=== PATIENT | female | born 1940 | race Caucasian/White ===

== ENCOUNTER 2021-08-05 13:36 | Inpatient (IN) ==
[2021-08-05] MEDS ORDERED: SODIUM CHLORIDE 0.9% 1,000 ML IV STA (14:39)
[2021-08-05 14:51] LABS: Basophils % 0.2 % (0.0-0.8); Hematocrit 42.4 VOL% (35.7-47.0); Immature Granulocytes % 0.7 %; Lymphocytes % 7.2 % (21.3-54.2); Mean Corpuscular Volume 97.2 FL (87-102); Mean Platelet Volume 9.8 FL (9.6-12.0); Monocytes # 0.4 10*3/uL (0.11-0.8); Monocytes % 2.9 % (1.7-12.7); Platelet Count 233 T/CUMM (130-400); Red Blood Count 4.36 MC/CUMM (3.8-5.5); Red Cell Distribution Width 13.8 % (9.3-17.3); White Blood Count 14.5 T/CUMM (4-12)
[2021-08-05 15:13] LABS: Albumin 4.1 G/DL (3.4-5.0); Bilirubin,Total 0.4 MG/DL (0.20-1.00); Calcium 10.5 MG/DL (8.5-10.1); Osmolality,Calculated 272.2 MOS/KG (273-304); Potassium 4.6 MMOL/L (3.5-5.1); Total Protein 8.6 G/DL (6.4-8.2)
[2021-08-05] MEDS ORDERED: ONDANSETRON 4 MG/2 ML VIAL IV PRN (15:28)
[2021-08-05] MEDS ORDERED: MORPHINE 2 MG/1 ML SYRINGE IV PRN ×2 (15:49)
[2021-08-05] MEDS ORDERED: ALBUTEROL/IPRATROPIUM 3 ML NEB RESP TX PRN (15:49)
[2021-08-05] MEDS ORDERED: ACETAMINOPHEN 325 MG TABLET PO PRN (15:49)
[2021-08-05] MEDS ORDERED: KETOROLAC 30 MG/1 ML VIAL IV PRN (15:49)
[2021-08-05] MEDS ORDERED: GLUCAGON 1 MG VIAL IM PRN (15:53)
[2021-08-05] MEDS ORDERED: hydrALAZINE 20 MG/1 ML VIAL IV PRN (15:53)
[2021-08-05] MEDS ORDERED: HYDROmorphone 1 MG/1 ML SYRINGE ONE (15:55)
[2021-08-05] MEDS ORDERED: DEXTROSE 10% 250 ML BAG IV PRN (15:56)
[2021-08-05] MEDS ORDERED: HYDROmorphone 1 MG/1 ML SYRINGE IV STA (16:00)
[2021-08-05] MEDS ORDERED: ONDANSETRON 4 MG/2 ML VIAL IV STA (16:00)
[2021-08-05] MEDS: LACTATED RINGERS 1,000 ML IV SCH (17:30)
[2021-08-05] MEDS: PANTOPRAZOLE 40 MG VIAL IV SCH (17:30)
[2021-08-05] MEDS: INSULIN LISPRO 100 UNIT/ML SUBCUT SCH ×2 (17:35→21:24)
[2021-08-05 19:02] LABS: Bilirubin,Urine Negative (Negative); Blood, Urine Negative (Negative); Glucose,Urine (UA) Negative (Negative); Hyaline Casts,Urine 3 /LPF (0-3); Ketones,Urine Negative (Negative); Mucus,Urine Occasional /LPF (Occasional); Nitrite,Urine Negative (Negative); Protein,Urine 30 mg/dL (Negative); RBC,Urine <1 /HPF (0-4); Squamous Epithelial Cell,Urine Occasional /HPF (0-10); Urine Appearance Clear (Clear); Urine Color Yellow (Yellow); Urine Specific Gravity 1.025 (1.001-1.035); Urine Urobilinogen 0.2 eU/dL (<2.0)
[2021-08-05] MEDS: ONDANSETRON 4 MG/2 ML VIAL IV PRN ×2 (20:55→23:04)
[2021-08-05] MEDS ORDERED: DILTIAZEM 90 MG TABLET PO SCH (21:00)
[2021-08-05] MEDS: BUDESONIDE/FORMOTEROL 160-4.5 INHALER 6 GM INH SCH (23:03)
[2021-08-05] MEDS: DILTIAZEM 30 MG TABLET PO SCH (23:03)
[2021-08-06] MEDS: LACTATED RINGERS 1,000 ML IV SCH ×3 (02:15→16:57)
[2021-08-06] MEDS: ONDANSETRON 4 MG/2 ML VIAL IV PRN (02:55)
[2021-08-06 05:23] LABS: Basophils % 0.2 % (0.0-0.8); Eosinophils % 0.1 % (0.00-10.9); Hematocrit 40.4 VOL% (35.7-47.0); Hemoglobin 13.2 GM/DL (12.0-16.0); Immature Granulocytes % 0.5 %; Immature Granulocytes Absolute 0.09 #; Lymphocytes # 1.2 10*3/uL (1.4-4.0); Lymphocytes % 6.5 % (21.3-54.2); Mean Corpuscular HGB Conc 32.7 GM/DL (32-36); Mean Corpuscular Volume 97.3 FL (87-102); Mean Platelet Volume 10.2 FL (9.6-12.0); Monocytes # 1.2 10*3/uL (0.11-0.8); Monocytes % 6.4 % (1.7-12.7); Neutrophils % 86.3 % (38.7-73.9); Platelet Count 218 T/CUMM (130-400); Red Blood Count 4.15 MC/CUMM (3.8-5.5); Red Cell Distribution Width 13.8 % (9.3-17.3); White Blood Count 17.8 T/CUMM (4-12)
[2021-08-06 05:36] LABS: Calcium 9.6 MG/DL (8.5-10.1); Osmolality,Calculated 276.8 MOS/KG (273-304)
[2021-08-06] MEDS: INSULIN LISPRO 100 UNIT/ML SUBCUT SCH ×4 (09:46→22:02)
[2021-08-06] MEDS: BUDESONIDE/FORMOTEROL 160-4.5 INHALER 6 GM INH SCH ×2 (09:53→22:02)
[2021-08-06] MEDS: TRIAMTERENE/HCTZ 37.5-25 MG TABLET PO SCH (09:54)
[2021-08-06] MEDS: DILTIAZEM 30 MG TABLET PO SCH ×2 (09:54→22:01)
[2021-08-06] MEDS: PANTOPRAZOLE 40 MG VIAL IV SCH (09:56)
[2021-08-06] MEDS ORDERED: PHENOL 1.4% THROAT SPRAY 177 ML BOTTLE PO PRN (11:03)
[2021-08-06] MEDS: ENOXAPARIN 40 MG/0.4 ML SYRINGE SUBCUT SCH (12:25)
[2021-08-07] MEDS: LACTATED RINGERS 1,000 ML IV SCH ×3 (00:43→18:22)
[2021-08-07] MEDS: INSULIN LISPRO 100 UNIT/ML SUBCUT SCH ×4 (08:16→20:46)
[2021-08-07] MEDS: TRIAMTERENE/HCTZ 37.5-25 MG TABLET PO SCH (08:51)
[2021-08-07] MEDS: DILTIAZEM 30 MG TABLET PO SCH ×2 (08:51→20:45)
[2021-08-07] MEDS: PANTOPRAZOLE 40 MG VIAL IV SCH (08:51)
[2021-08-07] MEDS: BUDESONIDE/FORMOTEROL 160-4.5 INHALER 6 GM INH SCH ×2 (08:52→20:46)
[2021-08-07] MEDS: ENOXAPARIN 40 MG/0.4 ML SYRINGE SUBCUT SCH ×2 (08:55→09:58)
[2021-08-08] MEDS: LACTATED RINGERS 1,000 ML IV SCH (01:56)
[2021-08-08 05:48] LABS: Basophils % 0.3 % (0.0-0.8); Eosinophils # 0.2 10*3/uL (0.0-0.87); Eosinophils % 2.1 % (0.00-10.9); Hemoglobin 10.6 GM/DL (12.0-16.0); Immature Granulocytes % 0.6 %; Immature Granulocytes Absolute 0.05 #; Lymphocytes # 2.6 10*3/uL (1.4-4.0); Lymphocytes % 28.7 % (21.3-54.2); Mean Corpuscular HGB Conc 32.1 GM/DL (32-36); Mean Corpuscular Volume 98.5 FL (87-102); Mean Platelet Volume 10.2 FL (9.6-12.0); Monocytes % 11.3 % (1.7-12.7); Platelet Count 162 T/CUMM (130-400); Red Blood Count 3.35 MC/CUMM (3.8-5.5); Red Cell Distribution Width 13.7 % (9.3-17.3); White Blood Count 8.9 T/CUMM (4-12)
[2021-08-08 06:07] LABS: Calcium 8.7 MG/DL (8.5-10.1); Osmolality,Calculated 275.4 MOS/KG (273-304)
[2021-08-08] MEDS: INSULIN LISPRO 100 UNIT/ML SUBCUT SCH ×4 (07:19→21:28)
[2021-08-08] MEDS: PANTOPRAZOLE 40 MG VIAL IV SCH (08:03)
[2021-08-08] MEDS: DILTIAZEM 30 MG TABLET PO SCH ×2 (08:03→20:48)
[2021-08-08] MEDS: TRIAMTERENE/HCTZ 37.5-25 MG TABLET PO SCH (08:04)
[2021-08-08] MEDS: ENOXAPARIN 40 MG/0.4 ML SYRINGE SUBCUT SCH ×2 (08:04→09:22)
[2021-08-08] MEDS: BUDESONIDE/FORMOTEROL 160-4.5 INHALER 6 GM INH SCH ×2 (08:04→20:49)
[2021-08-09] MEDS: INSULIN LISPRO 100 UNIT/ML SUBCUT SCH (07:17)
[2021-08-09] MEDS: TRIAMTERENE/HCTZ 37.5-25 MG TABLET PO SCH (08:54)
[2021-08-09] MEDS: PANTOPRAZOLE 40 MG VIAL IV SCH (08:55)
[2021-08-09] MEDS: DILTIAZEM 30 MG TABLET PO SCH (08:55)
[2021-08-09] MEDS: BUDESONIDE/FORMOTEROL 160-4.5 INHALER 6 GM INH SCH (08:57)
[2021-08-09] MEDS: LACTATED RINGERS 1,000 ML IV SCH (09:52)
[2021-08-09 11:40] VITALS: BP 121/50
== END 2021-08-09 12:13 | disposition home or self-care (01) | DRG 390 ==
LOC: N.ED 13:36 → N.EDINP 15:49 → N.3E 20:50
PROVIDERS: ADMIT Surgery; ATTEND Surgery

== ENCOUNTER 2022-02-03 19:42 | Inpatient (IN) ==
[2022-02-03] MEDS ORDERED: PANTOPRAZOLE 40 MG VIAL IV STA (20:45)
[2022-02-03] MEDS ORDERED: HYDROmorphone 1 MG/1 ML SYRINGE IV STA (20:45)
[2022-02-03] MEDS ORDERED: ONDANSETRON 4 MG/2 ML VIAL IV STA (20:45)
[2022-02-03] MEDS ORDERED: SODIUM CHLORIDE 0.9% 1,000 ML IV STA (20:45)
[2022-02-03 20:52] LABS: Basophils # 0.1 10*3/uL (0.0-0.2); Basophils % 0.3 % (0.0-0.8); Eosinophils % 0.1 % (0.00-10.9); Hematocrit 44.4 VOL% (35.7-47.0); Hemoglobin 14.8 GM/DL (12.0-16.0); Immature Granulocytes % 0.6 %; Immature Granulocytes Absolute 0.09 #; Lymphocytes # 0.9 10*3/uL (1.4-4.0); Lymphocytes % 5.6 % (21.3-54.2); Mean Corpuscular HGB Conc 33.3 GM/DL (32-36); Mean Corpuscular Volume 95.9 FL (87-102); Mean Platelet Volume 10.5 FL (9.6-12.0); Monocytes # 0.6 10*3/uL (0.11-0.8); Monocytes % 3.6 % (1.7-12.7); Neutrophils % 89.8 % (38.7-73.9); Platelet Count 239 T/CUMM (130-400); Red Blood Count 4.63 MC/CUMM (3.8-5.5); White Blood Count 16.2 T/CUMM (4-12)
[2022-02-03 21:50] LABS: Alanine Aminotransferase 35 U/L (13-56); Albumin 4.2 G/DL (3.4-5.0); Alkaline Phosphatase 94 U/L (45-117); Amylase > 1300 U/L (25-115); Aspartate Amino Transferase 41 U/L (0-37); Blood Urea Nitrogen 19 MG/DL (7-18); Calcium 9.9 MG/DL (8.5-10.1); Carbon Dioxide 27 MMOL/L (21-32); Chloride 105 MMOL/L (98-107); Glucose 168 MG/DL (74-106); Osmolality,Calculated 284.4 MOS/KG (273-304); Potassium 4.7 MMOL/L (3.5-5.1); Sodium 140 MMOL/L (136-145); Total Protein 7.7 G/DL (6.4-8.2)
[2022-02-03 23:46] LABS: Mucus,Urine Occasional /LPF (Occasional); RBC,Urine 1 /HPF (0-4)
[2022-02-03 23:48] LABS: Bilirubin,Urine Negative (Negative); Blood, Urine Trace mg/dL (Negative); Glucose,Urine (UA) Negative (Negative); Ketones,Urine Negative (Negative); Nitrite,Urine Negative (Negative); Protein,Urine Negative (Negative); Urine Appearance Clear (Clear); Urine Color Yellow (Yellow)
[2022-02-03 23:49] LABS: Urine Urobilinogen 0.2 eU/dL (<2.0)
[2022-02-04] MEDS ORDERED: HYDROmorphone 1 MG/1 ML SYRINGE IV PRN
[2022-02-04] MEDS ORDERED: GLUCAGON 1 MG VIAL IM PRN
[2022-02-04] MEDS ORDERED: DEXTROSE 10% 250 ML BAG IV PRN (00:09)
[2022-02-04] MEDS: INSULIN REGULAR 100 UNIT/ML SUBCUT SCH ×4 (00:25→18:27)
[2022-02-04] MEDS: PIPERACILLIN/TAZOBACTAM 3,375 MG in SODIUM CHLORIDE 0.9% 100 ML IV SCH ×3 (00:40→18:26)
[2022-02-04] MEDS: SODIUM CHLORIDE 0.9% 1,000 ML IV SCH ×3 (00:40→18:27)
[2022-02-04 04:41] LABS: Basophils % 0.1 % (0.0-0.8); Hematocrit 41.2 VOL% (35.7-47.0); Hemoglobin 13.7 GM/DL (12.0-16.0); Immature Granulocytes % 0.4 %; Immature Granulocytes Absolute 0.05 #; Lymphocytes # 1.3 10*3/uL (1.4-4.0); Lymphocytes % 10.4 % (21.3-54.2); Mean Corpuscular HGB Conc 33.3 GM/DL (32-36); Mean Platelet Volume 10.4 FL (9.6-12.0); Monocytes # 0.6 10*3/uL (0.11-0.8); Monocytes % 4.7 % (1.7-12.7); Neutrophils % 84.4 % (38.7-73.9); Platelet Count 208 T/CUMM (130-400); Red Blood Count 4.29 MC/CUMM (3.8-5.5); Red Cell Distribution Width 14.1 % (9.3-17.3); White Blood Count 12.7 T/CUMM (4-12)
[2022-02-04 05:02] LABS: Albumin 3.7 G/DL (3.4-5.0); Bilirubin,Total 0.9 MG/DL (0.20-1.00); Total Protein 7.6 G/DL (6.4-8.2)
[2022-02-04 05:04] LABS: Potassium 6.3 MMOL/L (3.5-5.1)
[2022-02-04] MEDS ORDERED: ONDANSETRON 4 MG/2 ML VIAL IV PRN ×2 (09:18)
[2022-02-04] MEDS: PANTOPRAZOLE 40 MG VIAL IV SCH (09:30)
[2022-02-04] MEDS: HYDROmorphone 1 MG/1 ML SYRINGE IV PRN ×2 (13:10→17:45)
[2022-02-04] MEDS: FAMOTIDINE 20 MG TABLET PO SCH (21:01)
[2022-02-04] MEDS: GABAPENTIN 100 MG CAPSULE PO SCH (21:01)
[2022-02-04] MEDS: DILTIAZEM 90 MG TABLET PO SCH (21:01)
[2022-02-05] MEDS: SODIUM CHLORIDE 0.9% 1,000 ML IV SCH ×4 (00:07→23:52)
[2022-02-05] MEDS: PIPERACILLIN/TAZOBACTAM 3,375 MG in SODIUM CHLORIDE 0.9% 100 ML IV SCH ×4 (00:07→23:52)
[2022-02-05] MEDS: INSULIN REGULAR 100 UNIT/ML SUBCUT SCH ×4 (00:11→17:31)
[2022-02-05 04:57] LABS: Basophils % 0.2 % (0.0-0.8); Eosinophils # 0.1 10*3/uL (0.0-0.87); Eosinophils % 0.4 % (0.00-10.9); Hematocrit 37.8 VOL% (35.7-47.0); Immature Granulocytes % 0.9 %; Immature Granulocytes Absolute 0.14 #; Lymphocytes # 1.4 10*3/uL (1.4-4.0); Lymphocytes % 8.4 % (21.3-54.2); Mean Corpuscular HGB Conc 31.7 GM/DL (32-36); Mean Corpuscular Volume 100.3 FL (87-102); Mean Platelet Volume 9.7 FL (9.6-12.0); Monocytes % 6.1 % (1.7-12.7); Platelet Count 175 T/CUMM (130-400); Red Blood Count 3.77 MC/CUMM (3.8-5.5); Red Cell Distribution Width 14.3 % (9.3-17.3); White Blood Count 16.5 T/CUMM (4-12)
[2022-02-05 05:20] LABS: Calcium 8.5 MG/DL (8.5-10.1); Potassium 3.7 MMOL/L (3.5-5.1); Total Protein 6.4 G/DL (6.4-8.2)
[2022-02-05] MEDS: allopurinoL 300 MG TABLET PO SCH (08:47)
[2022-02-05] MEDS: CETIRIZINE 10 MG TABLET PO SCH (08:47)
[2022-02-05] MEDS: DILTIAZEM 90 MG TABLET PO SCH ×2 (08:47→20:02)
[2022-02-05] MEDS: PANTOPRAZOLE 40 MG VIAL IV SCH (08:48)
[2022-02-05] MEDS: GABAPENTIN 100 MG CAPSULE PO SCH (20:02)
[2022-02-05] MEDS: FAMOTIDINE 20 MG TABLET PO SCH (20:02)
[2022-02-06] MEDS: INSULIN REGULAR 100 UNIT/ML SUBCUT SCH ×4 (00:01→17:44)
[2022-02-06] MEDS: SODIUM CHLORIDE 0.9% 1,000 ML IV SCH ×3 (04:10→17:44)
[2022-02-06 05:47] LABS: Basophils % 0.3 % (0.0-0.8); Eosinophils # 0.4 10*3/uL (0.0-0.87); Eosinophils % 2.4 % (0.00-10.9); Hematocrit 30.6 VOL% (35.7-47.0); Hemoglobin 9.7 GM/DL (12.0-16.0); Immature Granulocytes % 1.5 %; Immature Granulocytes Absolute 0.24 #; Lymphocytes # 1.9 10*3/uL (1.4-4.0); Lymphocytes % 12.2 % (21.3-54.2); Mean Corpuscular HGB Conc 31.7 GM/DL (32-36); Mean Corpuscular Volume 100.7 FL (87-102); Mean Platelet Volume 9.9 FL (9.6-12.0); Monocytes # 1.3 10*3/uL (0.11-0.8); Monocytes % 8.3 % (1.7-12.7); Neutrophils % 75.3 % (38.7-73.9); Platelet Count 153 T/CUMM (130-400); Red Blood Count 3.04 MC/CUMM (3.8-5.5); Red Cell Distribution Width 14.3 % (9.3-17.3); White Blood Count 15.6 T/CUMM (4-12)
[2022-02-06 06:03] LABS: Albumin 2.3 G/DL (3.4-5.0); Bilirubin,Total 0.7 MG/DL (0.20-1.00); Calcium 8.2 MG/DL (8.5-10.1); Potassium 3.3 MMOL/L (3.5-5.1); Total Protein 5.4 G/DL (6.4-8.2)
[2022-02-06] MEDS ORDERED: POTASSIUM CHLORIDE 20 MEQ TABLET PO ONE (08:13)
[2022-02-06] MEDS: PIPERACILLIN/TAZOBACTAM 3,375 MG in SODIUM CHLORIDE 0.9% 100 ML IV SCH ×2 (09:17→17:43)
[2022-02-06] MEDS: allopurinoL 300 MG TABLET PO SCH (09:17)
[2022-02-06] MEDS: DILTIAZEM 90 MG TABLET PO SCH ×2 (09:17→21:24)
[2022-02-06] MEDS: PANTOPRAZOLE 40 MG VIAL IV SCH (09:17)
[2022-02-06] MEDS: CETIRIZINE 10 MG TABLET PO SCH (09:17)
[2022-02-06] MEDS: FLUTICASONE 50 MCG NASAL SPRAY 16 GM BOTTLE BOTH NARES SCH ×2 (10:42→21:15)
[2022-02-06] MEDS: BUDESONIDE/FORMOTEROL 160-4.5 INHALER 6 GM INH SCH ×2 (10:43→21:15)
[2022-02-06] MEDS: ENOXAPARIN 40 MG/0.4 ML SYRINGE SUBCUT SCH (17:44)
[2022-02-06] MEDS: FAMOTIDINE 20 MG TABLET PO SCH (21:23)
[2022-02-06] MEDS: ACETAMINOPHEN 325 MG TABLET PO PRN (21:24)
[2022-02-06] MEDS: GABAPENTIN 100 MG CAPSULE PO SCH (21:24)
[2022-02-07] MEDS: PIPERACILLIN/TAZOBACTAM 3,375 MG in SODIUM CHLORIDE 0.9% 100 ML IV SCH ×3 (01:13→16:49)
[2022-02-07] MEDS: INSULIN REGULAR 100 UNIT/ML SUBCUT SCH ×4 (04:10→18:40)
[2022-02-07] MEDS: SODIUM CHLORIDE 0.9% 1,000 ML IV SCH ×2 (06:37→21:47)
[2022-02-07 06:45] LABS: Basophils % 0.2 % (0.0-0.8); Eosinophils # 0.4 10*3/uL (0.0-0.87); Eosinophils % 3.1 % (0.00-10.9); Hemoglobin 9.4 GM/DL (12.0-16.0); Immature Granulocytes % 0.7 %; Immature Granulocytes Absolute 0.09 #; Lymphocytes # 1.9 10*3/uL (1.4-4.0); Lymphocytes % 14.1 % (21.3-54.2); Mean Corpuscular HGB Conc 31.3 GM/DL (32-36); Mean Corpuscular Volume 100.7 FL (87-102); Mean Platelet Volume 10.1 FL (9.6-12.0); Monocytes # 1.4 10*3/uL (0.11-0.8); Neutrophils % 71.9 % (38.7-73.9); Platelet Count 167 T/CUMM (130-400); Red Blood Count 2.98 MC/CUMM (3.8-5.5); Red Cell Distribution Width 14.5 % (9.3-17.3); White Blood Count 13.7 T/CUMM (4-12)
[2022-02-07 07:14] LABS: Albumin 2.3 G/DL (3.4-5.0); Bilirubin,Total 0.7 MG/DL (0.20-1.00); Calcium 8.3 MG/DL (8.5-10.1); Osmolality,Calculated 284.8 MOS/KG (273-304); Potassium 3.8 MMOL/L (3.5-5.1); Total Protein 5.4 G/DL (6.4-8.2)
[2022-02-07] MEDS: CETIRIZINE 10 MG TABLET PO SCH (08:38)
[2022-02-07] MEDS: DILTIAZEM 90 MG TABLET PO SCH ×2 (08:38→20:10)
[2022-02-07] MEDS: allopurinoL 300 MG TABLET PO SCH (08:38)
[2022-02-07] MEDS: PANTOPRAZOLE 40 MG VIAL IV SCH (08:40)
[2022-02-07] MEDS: FLUTICASONE 50 MCG NASAL SPRAY 16 GM BOTTLE BOTH NARES SCH ×2 (08:46→20:10)
[2022-02-07] MEDS: BUDESONIDE/FORMOTEROL 160-4.5 INHALER 6 GM INH SCH ×2 (08:46→20:09)
[2022-02-07] MEDS ORDERED: FUROSEMIDE 40 MG/4 ML VIAL IV ONE (12:09)
[2022-02-07] MEDS: ENOXAPARIN 40 MG/0.4 ML SYRINGE SUBCUT SCH (16:49)
[2022-02-07] MEDS: ACETAMINOPHEN 325 MG TABLET PO PRN (19:33)
[2022-02-07] MEDS: FAMOTIDINE 20 MG TABLET PO SCH (20:10)
[2022-02-07] MEDS: GABAPENTIN 100 MG CAPSULE PO SCH (20:10)
[2022-02-08] MEDS: INSULIN REGULAR 100 UNIT/ML SUBCUT SCH ×4 (00:03→17:57)
[2022-02-08] MEDS: PIPERACILLIN/TAZOBACTAM 3,375 MG in SODIUM CHLORIDE 0.9% 100 ML IV SCH ×3 (00:03→16:39)
[2022-02-08 06:17] LABS: Basophils % 0.2 % (0.0-0.8); Eosinophils # 0.3 10*3/uL (0.0-0.87); Eosinophils % 2.7 % (0.00-10.9); Hematocrit 27.8 VOL% (35.7-47.0); Hemoglobin 9.1 GM/DL (12.0-16.0); Immature Granulocytes % 0.7 %; Immature Granulocytes Absolute 0.09 #; Lymphocytes # 1.6 10*3/uL (1.4-4.0); Lymphocytes % 12.6 % (21.3-54.2); Mean Corpuscular HGB Conc 32.7 GM/DL (32-36); Mean Corpuscular Volume 97.2 FL (87-102); Mean Platelet Volume 10.1 FL (9.6-12.0); Monocytes # 1.4 10*3/uL (0.11-0.8); Monocytes % 11.4 % (1.7-12.7); Neutrophils % 72.4 % (38.7-73.9); Platelet Count 186 T/CUMM (130-400); Red Blood Count 2.86 MC/CUMM (3.8-5.5); White Blood Count 12.3 T/CUMM (4-12)
[2022-02-08 06:38] LABS: Albumin 2.2 G/DL (3.4-5.0); Bilirubin,Total 0.7 MG/DL (0.20-1.00); Calcium 8.5 MG/DL (8.5-10.1); Potassium 2.7 MMOL/L (3.5-5.1); Total Protein 5.7 G/DL (6.4-8.2)
[2022-02-08] MEDS: POTASSIUM CHLORIDE RIDER 10 MEQ/100 ML PREMIX IV PRN ×8 (07:24→21:38)
[2022-02-08] MEDS: DILTIAZEM 90 MG TABLET PO SCH ×2 (09:39→20:21)
[2022-02-08] MEDS: PANTOPRAZOLE 40 MG VIAL IV SCH (09:40)
[2022-02-08] MEDS: allopurinoL 300 MG TABLET PO SCH ×2 (10:07→12:18)
[2022-02-08] MEDS: CETIRIZINE 10 MG TABLET PO SCH ×2 (10:08→12:18)
[2022-02-08 12:14] LABS: % Iron Saturation 13.7 % (18-50)
[2022-02-08] MEDS: BUDESONIDE/FORMOTEROL 160-4.5 INHALER 6 GM INH SCH ×2 (12:20→21:39)
[2022-02-08] MEDS: FLUTICASONE 50 MCG NASAL SPRAY 16 GM BOTTLE BOTH NARES SCH ×2 (12:20→20:20)
[2022-02-08 12:23] LABS: Folate 7.71 NG/ML (5.38-24.0)
[2022-02-08] MEDS ORDERED: MAGNESIUM SULF RIDER 4 GM/100 ML PREMIX IV PRN (19:02)
[2022-02-08] MEDS ORDERED: MAGNESIUM SULF RIDER 2 GM/50 ML PREMIX IV PRN (19:02)
[2022-02-08] MEDS: FAMOTIDINE 20 MG TABLET PO SCH (20:19)
[2022-02-08] MEDS: GABAPENTIN 100 MG CAPSULE PO SCH (20:20)
[2022-02-08] MEDS: ENOXAPARIN 40 MG/0.4 ML SYRINGE SUBCUT SCH (23:13)
[2022-02-09] MEDS: PIPERACILLIN/TAZOBACTAM 3,375 MG in SODIUM CHLORIDE 0.9% 100 ML IV SCH ×3 (00:44→17:38)
[2022-02-09] MEDS: INSULIN REGULAR 100 UNIT/ML SUBCUT SCH ×4 (02:34→17:38)
[2022-02-09] MEDS: POTASSIUM CHLORIDE RIDER 10 MEQ/100 ML PREMIX IV PRN ×3 (02:50→06:14)
[2022-02-09] MEDS ORDERED: TISSUE ADHESIVE 1 EACH APPLICATOR TOP ONE (06:33)
[2022-02-09] MEDS ORDERED: BUPIVACAINE MPF 0.25% 10 ML VIAL ONE (06:33)
[2022-02-09] MEDS ORDERED: LIDOCAINE 1% 5 ML VIAL ONE (06:33)
[2022-02-09 06:38] LABS: Basophils % 0.2 % (0.0-0.8); Eosinophils # 0.3 10*3/uL (0.0-0.87); Eosinophils % 2.6 % (0.00-10.9); Hematocrit 27.7 VOL% (35.7-47.0); Immature Granulocytes % 0.8 %; Lymphocytes # 1.5 10*3/uL (1.4-4.0); Lymphocytes % 11.8 % (21.3-54.2); Mean Corpuscular HGB Conc 32.5 GM/DL (32-36); Mean Corpuscular Volume 96.9 FL (87-102); Mean Platelet Volume 9.8 FL (9.6-12.0); Monocytes # 1.4 10*3/uL (0.11-0.8); Monocytes % 11.1 % (1.7-12.7); Neutrophils % 73.5 % (38.7-73.9); Platelet Count 190 T/CUMM (130-400); Red Blood Count 2.86 MC/CUMM (3.8-5.5); Red Cell Distribution Width 14.4 % (9.3-17.3); White Blood Count 12.7 T/CUMM (4-12)
[2022-02-09] MEDS ORDERED: LIDOCAINE 2% 5 ML VIAL ONE (06:46)
[2022-02-09] MEDS ORDERED: propofoL 200 MG/20 ML VIAL IV ONE (06:46)
[2022-02-09] MEDS ORDERED: ROCURONIUM 50 MG/5 ML VIAL IV ONE (06:46)
[2022-02-09] MEDS ORDERED: fentaNYL 100 MCG/2 ML VIAL ONE (06:47)
[2022-02-09 06:57] LABS: Calcium 8.7 MG/DL (8.5-10.1); Osmolality,Calculated 274.5 MOS/KG (273-304); Potassium 3.8 MMOL/L (3.5-5.1)
[2022-02-09] MEDS ORDERED: LACTATED RINGERS 1,000 ML IV SCH (07:00)
[2022-02-09 07:01] LABS: Albumin 2.3 G/DL (3.4-5.0); Bilirubin,Total 0.6 MG/DL (0.20-1.00); Calcium 8.6 MG/DL (8.5-10.1); Osmolality,Calculated 274.5 MOS/KG (273-304); Potassium 3.8 MMOL/L (3.5-5.1); Total Protein 5.8 G/DL (6.4-8.2)
[2022-02-09] MEDS ORDERED: NEOSTIGMINE 10 MG/10 ML VIAL ONE (07:58)
[2022-02-09] MEDS ORDERED: GLYCOPYRROLATE 0.4 MG/2 ML VIAL ONE (07:59)
[2022-02-09] MEDS ORDERED: SEVOFLURANE 1 UNIT/15 MINUTE INH ONE (08:34)
[2022-02-09] MEDS ORDERED: ALBUTEROL/IPRATROPIUM 3 ML NEB RESP TX ONE (08:38)
[2022-02-09] MEDS: DILTIAZEM 90 MG TABLET PO SCH ×2 (10:33→20:44)
[2022-02-09] MEDS: allopurinoL 300 MG TABLET PO SCH ×2 (10:33→10:53)
[2022-02-09] MEDS: PANTOPRAZOLE 40 MG VIAL IV SCH (10:34)
[2022-02-09] MEDS: CETIRIZINE 10 MG TABLET PO SCH (10:34)
[2022-02-09] MEDS: FLUTICASONE 50 MCG NASAL SPRAY 16 GM BOTTLE BOTH NARES SCH ×2 (10:35→20:44)
[2022-02-09] MEDS: BUDESONIDE/FORMOTEROL 160-4.5 INHALER 6 GM INH SCH ×2 (10:35→20:44)
[2022-02-09] MEDS ORDERED: CHOLECALCIFEROL 1,000 UNIT TABLET PO ONE (13:00)
[2022-02-09] MEDS ORDERED: FERRIC GLUCONATE COMPLEX 125 MG in SODIUM CHLORIDE 0.9% 100 ML IV ONE (13:00)
[2022-02-09] MEDS: FAMOTIDINE 20 MG TABLET PO SCH (20:44)
[2022-02-09] MEDS: GABAPENTIN 100 MG CAPSULE PO SCH (20:45)
[2022-02-10] MEDS: PIPERACILLIN/TAZOBACTAM 3,375 MG in SODIUM CHLORIDE 0.9% 100 ML IV SCH ×2 (00:40→10:37)
[2022-02-10] MEDS: INSULIN REGULAR 100 UNIT/ML SUBCUT SCH ×4 (00:54→18:17)
[2022-02-10 05:23] LABS: Basophils % 0.2 % (0.0-0.8); Eosinophils # 0.3 10*3/uL (0.0-0.87); Eosinophils % 2.5 % (0.00-10.9); Hematocrit 28.2 VOL% (35.7-47.0); Hemoglobin 8.8 GM/DL (12.0-16.0); Immature Granulocytes % 1.1 %; Immature Granulocytes Absolute 0.11 #; Lymphocytes # 1.5 10*3/uL (1.4-4.0); Lymphocytes % 15.1 % (21.3-54.2); Mean Corpuscular HGB Conc 31.2 GM/DL (32-36); Mean Corpuscular Volume 100.7 FL (87-102); Mean Platelet Volume 9.8 FL (9.6-12.0); Monocytes # 1.2 10*3/uL (0.11-0.8); Monocytes % 11.7 % (1.7-12.7); Neutrophils % 69.4 % (38.7-73.9); Platelet Count 214 T/CUMM (130-400); Red Cell Distribution Width 14.6 % (9.3-17.3); White Blood Count 10.1 T/CUMM (4-12)
[2022-02-10 05:29] LABS: PT Patient Result 11.5 SECS (10.1-12.1)
[2022-02-10 05:37] LABS: Albumin 2.1 G/DL (3.4-5.0); Bilirubin,Total 0.5 MG/DL (0.20-1.00); Calcium 8.9 MG/DL (8.5-10.1); Osmolality,Calculated 277.3 MOS/KG (273-304); Potassium 3.8 MMOL/L (3.5-5.1); Total Protein 5.9 G/DL (6.4-8.2)
[2022-02-10 05:46] LABS: Calcium 8.4 MG/DL (8.5-10.1); Osmolality,Calculated 273.5 MOS/KG (273-304); Potassium 3.6 MMOL/L (3.5-5.1)
[2022-02-10] MEDS ORDERED: LACTATED RINGERS 1,000 ML IV SCH (08:00)
[2022-02-10] MEDS ORDERED: INDOMETHACIN SUPP 50 MG SUPP RECTAL ONE (08:32)
[2022-02-10] MEDS: BUDESONIDE/FORMOTEROL 160-4.5 INHALER 6 GM INH SCH ×2 (10:36→21:16)
[2022-02-10] MEDS: FLUTICASONE 50 MCG NASAL SPRAY 16 GM BOTTLE BOTH NARES SCH ×2 (10:36→21:16)
[2022-02-10] MEDS ORDERED: ALBUTEROL/IPRATROPIUM 3 ML NEB RESP TX STA (11:01)
[2022-02-10] MEDS ORDERED: ONDANSETRON 4 MG/2 ML VIAL ONE (11:49)
[2022-02-10] MEDS ORDERED: SEVOFLURANE 1 UNIT/15 MINUTE INH ONE (11:49)
[2022-02-10] MEDS ORDERED: propofoL 200 MG/20 ML VIAL IV ONE (11:49)
[2022-02-10] MEDS ORDERED: fentaNYL 100 MCG/2 ML VIAL ONE (11:49)
[2022-02-10] MEDS ORDERED: SUCCINYLCHOLINE 200 MG/10 ML VIAL ONE (11:49)
[2022-02-10] MEDS ORDERED: LIDOCAINE 2% 5 ML VIAL ONE (11:49)
[2022-02-10] MEDS: FERROUS SULFATE 325 MG TABLET PO SCH (15:40)
[2022-02-10] MEDS: DILTIAZEM 90 MG TABLET PO SCH ×2 (15:40→21:15)
[2022-02-10] MEDS: PANTOPRAZOLE 40 MG VIAL IV SCH (15:41)
[2022-02-10] MEDS: CHOLECALCIFEROL 1,000 UNIT TABLET PO SCH (15:41)
[2022-02-10] MEDS: allopurinoL 300 MG TABLET PO SCH (15:41)
[2022-02-10] MEDS: CETIRIZINE 10 MG TABLET PO SCH (15:41)
[2022-02-10] MEDS: GABAPENTIN 100 MG CAPSULE PO SCH (21:16)
[2022-02-10] MEDS: FAMOTIDINE 20 MG TABLET PO SCH (21:16)
[2022-02-11] MEDS: PIPERACILLIN/TAZOBACTAM 3,375 MG in SODIUM CHLORIDE 0.9% 100 ML IV SCH (00:28)
[2022-02-11] MEDS: INSULIN REGULAR 100 UNIT/ML SUBCUT SCH ×2 (00:36→06:27)
[2022-02-11 05:19] LABS: Bilirubin,Total 0.4 MG/DL (0.20-1.00); Calcium 8.6 MG/DL (8.5-10.1); Osmolality,Calculated 277.4 MOS/KG (273-304); Potassium 3.2 MMOL/L (3.5-5.1); Total Protein 5.6 G/DL (6.4-8.2)
[2022-02-11 08:23] VITALS: BP 108/65
[2022-02-11] MEDS: BUDESONIDE/FORMOTEROL 160-4.5 INHALER 6 GM INH SCH (09:04)
[2022-02-11] MEDS: CHOLECALCIFEROL 1,000 UNIT TABLET PO SCH (09:04)
[2022-02-11] MEDS: DILTIAZEM 90 MG TABLET PO SCH (09:04)
[2022-02-11] MEDS: FLUTICASONE 50 MCG NASAL SPRAY 16 GM BOTTLE BOTH NARES SCH (09:04)
[2022-02-11] MEDS: CETIRIZINE 10 MG TABLET PO SCH (09:04)
[2022-02-11] MEDS: allopurinoL 300 MG TABLET PO SCH (09:04)
[2022-02-11] MEDS: FERROUS SULFATE 325 MG TABLET PO SCH (09:04)
[2022-02-11] MEDS: PANTOPRAZOLE 40 MG VIAL IV SCH (09:05)
[2022-02-11] MEDS ORDERED: INSULIN REGULAR 100 UNIT/ML SUBCUT SCH (11:30)
== END 2022-02-11 10:49 | disposition home or self-care (01) | DRG 418 ==
LOC: N.ED 19:42 → N.EDINP 23:04 → N.5E 02-04 09:32
PROVIDERS: ADMIT Surgery; ATTEND Surgery
PROC: LAPCHOL (2022-02-09 06:59)
PROC: ERCPWSP (ICD-10-PCS; 2022-02-10 13:20)

== ENCOUNTER 2022-02-15 12:29 | Inpatient (IN) ==
[2022-02-15] MEDS ORDERED: ASPIRIN 325 MG TABLET ONE (12:52)
[2022-02-15] MEDS ORDERED: ASPIRIN CHEW 81 MG TABLET PO STA (12:56)
[2022-02-15 13:02] LABS: Basophils # 0.1 10*3/uL (0.0-0.2); Basophils % 0.5 % (0.0-0.8); Eosinophils # 0.3 10*3/uL (0.0-0.87); Eosinophils % 2.4 % (0.00-10.9); Hematocrit 34.8 VOL% (35.7-47.0); Hemoglobin 11.1 GM/DL (12.0-16.0); Immature Granulocytes % 0.8 %; Lymphocytes # 1.7 10*3/uL (1.4-4.0); Mean Corpuscular HGB Conc 31.9 GM/DL (32-36); Mean Corpuscular Volume 99.1 FL (87-102); Mean Platelet Volume 9.6 FL (9.6-12.0); Monocytes # 0.8 10*3/uL (0.11-0.8); Neutrophils % 77.3 % (38.7-73.9); Platelet Count 448 T/CUMM (130-400); Red Blood Count 3.51 MC/CUMM (3.8-5.5); Red Cell Distribution Width 14.9 % (9.3-17.3); White Blood Count 12.7 T/CUMM (4-12)
[2022-02-15 13:10] LABS: PT Patient Result 10.9 SECS (10.1-12.1); Partial Thromboplastin Time 23.8 SECS (23.7-32.9)
[2022-02-15 13:30] LABS: Alanine Aminotransferase 18 U/L (13-56); Alkaline Phosphatase 82 U/L (45-117); Aspartate Amino Transferase 28 U/L (0-37); Bilirubin,Total < 0.39 MG/DL (0.20-1.00); Blood Urea Nitrogen 6 MG/DL (7-18); Calcium 9.5 MG/DL (8.5-10.1); Carbon Dioxide 28 MMOL/L (21-32); Chloride 105 MMOL/L (98-107); Glucose 178 MG/DL (74-106); Osmolality,Calculated 282.3 MOS/KG (273-304); Potassium 4.4 MMOL/L (3.5-5.1); Sodium 141 MMOL/L (136-145); Total Protein 6.8 G/DL (6.4-8.2)
[2022-02-15] MEDS ORDERED: METOPROLOL TARTRATE 5 MG/5 ML VIAL IV ONE (13:49)
[2022-02-15] MEDS ORDERED: ENOXAPARIN 30 MG/0.3 ML SYRINGE ONE (13:49)
[2022-02-15] MEDS ORDERED: ENOXAPARIN 60 MG/0.6 ML SYRINGE IV ONE (13:52)
[2022-02-15] MEDS ORDERED: METOPROLOL TARTRATE 5 MG/5 ML VIAL IV STA (13:53)
[2022-02-15] MEDS ORDERED: ALUMINUM/MAGNES/SIMETH MAX STR 30 ML UDCUP PO PRN (13:56)
[2022-02-15] MEDS ORDERED: ONDANSETRON 4 MG/2 ML VIAL IV PRN (13:56)
[2022-02-15] MEDS ORDERED: MAGNESIUM SULF RIDER 4 GM/100 ML PREMIX IV PRN (13:56)
[2022-02-15] MEDS ORDERED: MAGNESIUM SULF RIDER 2 GM/50 ML PREMIX IV PRN (13:56)
[2022-02-15] MEDS ORDERED: ZALEPLON 5 MG CAPSULE PO PRN (13:56)
[2022-02-15] MEDS ORDERED: LACTULOSE 20 GM/30 ML UDCUP PO PRN (13:56)
[2022-02-15] MEDS ORDERED: SODIUM CHLORIDE 0.9% 1,000 ML IV SCH (14:00)
[2022-02-15] MEDS ORDERED: fentaNYL 100 MCG/2 ML VIAL ONE (14:13)
[2022-02-15] MEDS ORDERED: MIDAZOLAM 2 MG/2 ML VIAL ONE (14:13)
[2022-02-15 14:14] VITALS: BP 144/94
[2022-02-15] MEDS ORDERED: FUROSEMIDE 40 MG/4 ML VIAL ONE (14:26)
[2022-02-15] MEDS ORDERED: TIROFIBAN 5,000 MCG/100 ML PREMIX IV ONE (14:33)
[2022-02-15] MEDS ORDERED: TICAGRELOR 90 MG TABLET ONE (15:38)
[2022-02-15] MEDS ORDERED: GLUCAGON 1 MG VIAL IM PRN (15:40)
[2022-02-15] MEDS ORDERED: NITROGLYCERIN SL 0.4 MG TABLET SL PRN (15:40)
[2022-02-15] MEDS ORDERED: LEVALBUTEROL 1.25 MG/3 ML NEB RESP TX PRN (15:47)
[2022-02-15] MEDS ORDERED: DEXTROSE 10% 250 ML BAG IV PRN (15:52)
[2022-02-15] MEDS ORDERED: TIROFIBAN 5,000 MCG/100 ML PREMIX IV SCH (16:00)
[2022-02-15] MEDS ORDERED: carvediloL 6.25 MG TABLET PO SCH (17:00)
[2022-02-15] MEDS ORDERED: NITROGLYCERIN 2% OINT 1 INCH/GM PACK TOP ONE (17:44)
[2022-02-15] MEDS ORDERED: FUROSEMIDE 40 MG/4 ML VIAL IV ONE (18:00)
[2022-02-15] MEDS: GABAPENTIN 100 MG CAPSULE PO SCH (20:57)
[2022-02-15] MEDS: TICAGRELOR 90 MG TABLET PO SCH (20:57)
[2022-02-15] MEDS: ROSUVASTATIN 20 MG TABLET PO SCH (20:57)
[2022-02-15] MEDS ORDERED: GABAPENTIN 100 MG CAPSULE PO SCH (21:00)
[2022-02-15] MEDS ORDERED: SIMVASTATIN 40 MG TABLET PO SCH (21:00)
[2022-02-15] MEDS: INSULIN LISPRO 100 UNIT/ML SUBCUT SCH (23:45)
[2022-02-16 05:26] LABS: Basophils # 0.1 10*3/uL (0.0-0.2); Basophils % 0.3 % (0.0-0.8); Eosinophils # 0.1 10*3/uL (0.0-0.87); Eosinophils % 0.3 % (0.00-10.9); Hematocrit 35.4 VOL% (35.7-47.0); Hemoglobin 11.2 GM/DL (12.0-16.0); Immature Granulocytes % 0.7 %; Immature Granulocytes Absolute 0.11 #; Lymphocytes % 6.4 % (21.3-54.2); Mean Corpuscular HGB Conc 31.6 GM/DL (32-36); Mean Corpuscular Volume 99.4 FL (87-102); Monocytes # 1.2 10*3/uL (0.11-0.8); Neutrophils % 84.3 % (38.7-73.9); Platelet Count 419 T/CUMM (130-400); Red Blood Count 3.56 MC/CUMM (3.8-5.5); Red Cell Distribution Width 14.6 % (9.3-17.3); White Blood Count 15.5 T/CUMM (4-12)
[2022-02-16 07:04] LABS: Albumin 2.7 G/DL (3.4-5.0); Bilirubin,Total 0.5 MG/DL (0.20-1.00); Calcium 9.1 MG/DL (8.5-10.1); Potassium 4.1 MMOL/L (3.5-5.1); Risk Ratio 4.43; Total Protein 7.1 G/DL (6.4-8.2); VLDL Cholesterol 36.8 MG/DL
[2022-02-16 07:11] LABS: High Sensitive Troponin I* 41886.3 ng/L (0-54)
[2022-02-16] MEDS: INSULIN LISPRO 100 UNIT/ML SUBCUT SCH ×4 (08:02→21:02)
[2022-02-16] MEDS: ASPIRIN EC 81 MG TABLET PO SCH (08:36)
[2022-02-16] MEDS: FUROSEMIDE 40 MG/4 ML VIAL IV SCH (08:36)
[2022-02-16] MEDS: TICAGRELOR 90 MG TABLET PO SCH ×2 (08:37→21:02)
[2022-02-16] MEDS: allopurinoL 300 MG TABLET PO SCH (08:37)
[2022-02-16] MEDS: PANTOPRAZOLE 40 MG TABLET PO SCH (08:38)
[2022-02-16] MEDS ORDERED: LOSARTAN 25 MG TABLET PO SCH (09:00)
[2022-02-16] MEDS ORDERED: allopurinoL 300 MG TABLET PO SCH (09:00)
[2022-02-16 10:45] LABS: Hyaline Casts,Urine 8 /LPF (0-3); Mucus,Urine Occasional /LPF (Occasional); RBC,Urine 1 /HPF (0-4)
[2022-02-16 10:46] LABS: Bilirubin,Urine Negative (Negative); Blood, Urine Trace mg/dL (Negative); Glucose,Urine (UA) Negative (Negative); Ketones,Urine Negative (Negative); Nitrite,Urine Positive (Negative); Protein,Urine Negative (Negative); Urine Appearance Clear (Clear); Urine Color Yellow (Yellow); Urine Specific Gravity 1.015 (1.001-1.035); Urine Urobilinogen 0.2 eU/dL (<2.0)
[2022-02-16] MEDS ORDERED: cefTRIAXone 1,000 MG in SODIUM CHLORIDE 0.9% 100 ML IV SCH (11:00)
[2022-02-16] MEDS ORDERED: diphenhydrAMINE CAP 25 MG CAPSULE PO PRN (17:30)
[2022-02-16] MEDS ORDERED: ENOXAPARIN 40 MG/0.4 ML SYRINGE SUBCUT SCH (21:00)
[2022-02-16] MEDS: ROSUVASTATIN 20 MG TABLET PO SCH (21:01)
[2022-02-16] MEDS: GABAPENTIN 100 MG CAPSULE PO SCH (21:01)
[2022-02-16] MEDS ORDERED: METOPROLOL TARTRATE 5 MG/5 ML VIAL IV ONE (23:48)
[2022-02-16] MEDS ORDERED: LACTATED RINGERS 500 ML IV ONE (23:51)
[2022-02-16] MEDS ORDERED: DIGOXIN 0.5 MG/2 ML AMP ONE (23:52)
[2022-02-16] MEDS ORDERED: AMIODARONE 150 MG/3 ML VIAL ONE (23:52)
[2022-02-16] MEDS ORDERED: DIGOXIN 0.5 MG/2 ML AMP IV ONE (23:56)
[2022-02-17] MEDS ORDERED: AMIODARONE INJ 150 MG in DEXTROSE 5% 100 ML IV ONE
[2022-02-17] MEDS ORDERED: AMIODARONE 450 MG/9 ML VIAL IV ONE (00:06)
[2022-02-17] MEDS ORDERED: AMIODARONE INJ 450 MG in DEXTROSE 5% 241 ML IV SCH ×2 (00:12→06:00)
[2022-02-17] MEDS ORDERED: DIGOXIN 0.5 MG/2 ML AMP ONE (00:15)
[2022-02-17] MEDS ORDERED: DIGOXIN 0.5 MG/2 ML AMP IV ONE (00:15)
[2022-02-17] MEDS ORDERED: METOPROLOL TARTRATE 5 MG/5 ML VIAL IV ONE (01:02)
[2022-02-17 05:35] LABS: Basophils # 0.1 10*3/uL (0.0-0.2); Basophils % 0.3 % (0.0-0.8); Eosinophils # 0.6 10*3/uL (0.0-0.87); Eosinophils % 4.4 % (0.00-10.9); Hematocrit 34.1 VOL% (35.7-47.0); Hemoglobin 10.9 GM/DL (12.0-16.0); Immature Granulocytes Absolute 0.15 #; Lymphocytes # 1.4 10*3/uL (1.4-4.0); Lymphocytes % 9.7 % (21.3-54.2); Mean Corpuscular Volume 99.4 FL (87-102); Mean Platelet Volume 9.8 FL (9.6-12.0); Monocytes # 1.4 10*3/uL (0.11-0.8); Monocytes % 9.6 % (1.7-12.7); Platelet Count 414 T/CUMM (130-400); Red Blood Count 3.43 MC/CUMM (3.8-5.5); Red Cell Distribution Width 14.8 % (9.3-17.3); White Blood Count 14.4 T/CUMM (4-12)
[2022-02-17 06:08] LABS: Calcium 8.8 MG/DL (8.5-10.1); Osmolality,Calculated 270.1 MOS/KG (273-304)
[2022-02-17] MEDS: INSULIN LISPRO 100 UNIT/ML SUBCUT SCH (09:08)
[2022-02-17] MEDS: FUROSEMIDE 40 MG/4 ML VIAL IV SCH (09:28)
[2022-02-17] MEDS: PANTOPRAZOLE 40 MG TABLET PO SCH (09:28)
[2022-02-17] MEDS: allopurinoL 300 MG TABLET PO SCH (09:28)
[2022-02-17] MEDS: TICAGRELOR 90 MG TABLET PO SCH (09:28)
[2022-02-17] MEDS: ASPIRIN EC 81 MG TABLET PO SCH (09:28)
[2022-02-17] MEDS ORDERED: HEPARIN DRIP 25,000 UNITS/500 ML PREMIX IV SCH (09:30)
== END 2022-02-17 10:55 | disposition hospice, home (50) | DRG 246 ==
LOC: N.ED 12:29 → N.CC 13:55 → N.ED 14:05 → N.CC 14:10
PROVIDERS: ADMIT Internal Medicine Cardiovascular Disease; ATTEND Internal Medicine Cardiovascular Disease
PROC: CLCCHCL (ICD-10-PCS; 2022-02-15 14:15)